=== PATIENT | female | born 1940 | race Caucasian/White ===

== ENCOUNTER 2018-10-01 01:16 | Inpatient (IN) | payer OTHER, MEDICARE ==
[~2018-10-01] VITALS: Ht 152.4 cm; Wt 75.4 kg
[2018-10-01 01:17] VITALS: BP 136/58
[2018-10-01 02:01] LABS: ABSOLUTE NEUTROPHILS 7.4 thou/uL (1.4-8.2); BASOPHILS 0.9 % (0.0-2.0); EOSINOPHILS 1.3 % (0.0-3.0); HEMATOCRIT 38.8 % (37.0-47.0); HEMOGLOBIN 13.1 gm/dL (12.0-15.0); LYMPHOCYTES 13.1 % (24.0-44.0); MCH 28.4 pg (26.0-34.0); MCHC 33.8 g/dL (28.0-37.0); MCV 84.2 fL (80.0-100.0); MONOCYTES 7.3 % (1.0-8.0); PLATELET COUNT 229 thou/uL (150-400); POLYS 77.4 % (36.0-66.0); RBC 4.61 mil/uL (4.20-5.00); RDW 14.6 % (10.5-14.5); WBC 9.6 thou/uL (4.0-11.0)
[2018-10-01 02:08] LABS: ANION GAP 11 mmol/L (7-16); BUN 21 mg/dL (7-18); CALCIUM 8.6 mg/dL (8.5-10.1); CHLORIDE 103 mmol/L (98-107); CO2 28 mmol/L (21-32); CREATININE 1.1 mg/dL (0.6-1.0); GLUCOSE 156 mg/dL (74-106); POTASSIUM 3.4 mmol/L (3.5-5.1); SODIUM 142 mmol/L (136-145)
[2018-10-01 02:18] LABS: ALBUMIN 3.7 g/dL (3.4-5.0); MAGNESIUM 1.6 mg/dL (1.8-2.4); SGOT 19 U/L (15-37); SGPT 23 U/L (30-65); TOTAL BILIRUBIN 0.6 mg/dL (<0.1-1.0); TROPONIN-I <0.06 ng/mL (<0.06)
[2018-10-01] MEDS ORDERED: MAXZIDE-25 MG1 EACH PO (02:22)
[2018-10-01] MEDS ORDERED: CARDIZEM CD240 MG PO (02:22)
[2018-10-01] MEDS ORDERED: SIMVASTATIN40 MG PO (02:22)
[2018-10-01] MEDS ORDERED: [UNRECOGNIZED DRUG - OTHER] (02:23)
[2018-10-01] MEDS ORDERED: VITAMIN D31000 UNIT PO (02:23)
[2018-10-01] MEDS ORDERED: PREVACID15 MG PO (02:23)
[2018-10-01 05:58] LABS: CHOLESTEROL 162 mg/dL (<200); HDL CHOLESTEROL 62 mg/dL (>40); LDL CHOLESTEROL 87 mg/dL (<100); SERUM ASSESSMENT Clear; TC:HDL 2.6 Ratio (Not establshd); TRIGLYCERIDE 67 mg/dL (<150); VLDL 13 mg/dL (<40)
--- NOTE | 2018-10-01 08:16 | EKG ---
[address] [address] ELECTROCARDIOGRAM REPORT Name: FIDEL GASCA Room #: 170-1 ADM IN M.R.#: [id number] ������������������ Admission: 10/01/18 ������������������ Attend Phys: Adonis Jones MD Discharge: ������������������ Date of : 42 Report #: [id number] ����������������������������������������������������������������� [id number] THIS REPORT FOR: //name// [facility] ED Test Date: 2018-10-01 Test Time: 01:23:25 Pat Name: FIDEL GASCA Department: Room: 170 Gender: F Rail Car Repairer: Bird PACHECO : 1940 Requested By: Johnny Shaffer Order Number: [id number] MD: Hussain Terry Measurements Intervals [place] Rate: 56 P: 54 AR: 176 QRS: 50 QRSD: 99 T: 58 QT: 503 QTc: 486 Interpretive Statements Sinus rhythm Borderline prolonged QT interval Compared to ECG 09/23/2004 06:14:17 No significant changes Electronically Signed On 10-01-2018 8:16:28 CDT by Hussain Terry [email or web address] ��������������������������������������������� <ELECTRONICALLY SIGNED> ���������������������������������������� By: Hussain Terry MD ��������������������������������������������� 10/01/18815 0123 0123 Hussain Terry MD /DEZ
[2018-10-01] MEDS ORDERED: ALLEGRA-D 24 H1 EACH PO (09:13)
[2018-10-01 09:24] LABS: URINE BILIRUBIN NEGATIVE (Negative); URINE BLOOD 1+ (Negative); URINE CLARITY CLOUDY; URINE COLOR YELLOW; URINE GLUCOSE-RANDOM* NEGATIVE (Negative); URINE KETONES NEGATIVE (Negative); URINE NITRITE-REFLEX NEGATIVE (Negative); URINE PROTEIN (DIPSTICK) NEGATIVE (Negative); URINE SPECIFIC GRAVITY 1.015 (1.005-1.035); URINE UROBILINOGEN 0.2 E.U./dl (0.2-1.0)
[2018-10-01 09:36] LABS: URINE LEUKOCYTES-REFLEX 3+ (Negative)
[2018-10-01 09:48] LABS: BACTERIA-REFLEX >30 Many /HPF (None Seen); CASTS None Seen /LPF (None Seen); CRYSTALS None Seen /LPF (None Seen); SQUAMOUS None Seen /LPF (0-3); URINE RBC 0-2 Rare /HPF (0-2)
--- NOTE | 2018-10-01 11:15 | 2DMMODE ---
[facility] [place] [address] 2 D/M-MODE ECHOCARDIOGRAM Name: ALLIEDAMIANFIDEL J Room #: 170 ADM IN M.R.#: [id number] ������������� Admission: 10/01/18 ������������� Attend Phys: Noam Zapien Discharge: ��� ������������� ��� Date of : 42 Date of Service: 10/01/18 1115 �� Report #: [id number] �������� ��������������������������������������������[id number] THIS REPORT FOR: //name// APPROVED REPORT Study performed: 10/01/2018 10:25:30 EXAM: Comprehensive 2D, Doppler, and color-flow Echocardiogram Patient Location: Echo lab Room #: [facility] Status: routine BSA: 1.65 HR: 75 bpm BP: 139/68 mmHg Rhythm: PVC's Other Information Study Quality: Fair Indications Hypertension/HDD 2D Dimensions RVDd: 31.74 mm Volumes Left Atrial Volume (Systole) Single Plane 4CH: 47.54 mL Single Plane 2CH: 48.28 mL LA ESV Index: 32.00 mL/m2 Aortic Valve AoV Peak Sonido.: 1.52 m/s AO Peak Gr.: 9.21 mmHg LVOT Max P.47 mmHg LVOT Max V: 0.93 m/s Mitral Valve E/A Ratio: 0.8 MV Decel. Time: 257.17 ms MV E Max Sonido.: 0.88 m/s MV A Sonido.: 1.17 m/s MV PHT: 74.58 ms IVRT: 78.43 ms Pulmonary Vein P Vein S: 0.84 m/s P Vein A: 0.37 m/s [facility] [address] [place] [address] 2 D/M-MODE ECHOCARDIOGRAM Name: CAMPOSFIDEL J Room #: 170-1 [facility] IN .R.#: [id number] ������������� Admission: 10/01/18 ������������� Attend Phys: Noam Zapien Discharge: ��� ������������� ��� Date of : 42 Date of Service: 10/01/18 1115 �� Report #: [id number] �������� ��������������������������������������������[id number] P Vein D: 0.49 m/s P Vein A Dur.: 73.8 msec P Vein S/D Ratio: 1.71 Tricuspid Valve TR Peak Sonido.: 2.64 m/s TR Peak Gr.: 27.90 mmHg Left Ventricle The left ventricle is normal size. There is normal left ventricular wall thickness. The left ventricular systolic function is normal. The left ventricular ejection fraction is within the normal range. LVEF is 55-60%. Mild diastolic dysfunction is present (impaired relaxation pattern). Right Ventricle The right ventricle is normal size. The right ventricular systolic function is normal. Atria The left atrium size is normal. The right atrium size is normal. Aortic Valve The aortic valve is normal in structure. No aortic regurgitation is present. There is no aortic valvular stenosis. Mitral Valve The mitral valve is normal in structure. Mild mitral regurgitation. No evidence of mitral valve stenosis. Tricuspid Valve The tricuspid valve is normal in structure. Trace to mild tricuspid regurgitation. Pulmonic Valve Pulmonic valve is not well visualized. Great Vessels The aortic root is normal in size. IVC is not well visualized. Pericardium There is no pericardial effusion. <Conclusion> The left ventricle is normal size. [facility] [address] [place] [address] 2 D/M-MODE ECHOCARDIOGRAM Name: FIDEL GASCA Room #: 170- ADM IN [facility].#: [id number] ������������� Admission: 10/01/18 ������������� Attend Phys: Noam Zapien Discharge: ��� ������������� ��� Date of : 42 Date of Service: 10/01/18 1115 �� Report #: [id number] �������� ��������������������������������������������[id number] There is normal left ventricular wall thickness. The left ventricular systolic function is normal. Mild diastolic dysfunction is present (impaired relaxation pattern). The right ventricle is normal size. The left atrium size is normal. The right atrium size is normal. The aortic valve is normal in structure. Mild mitral regurgitation. Trace to mild tricuspid regurgitation. ��������������������������������������������� <ELECTRONICALLY SIGNED> ���������������������������������������� By: Art Fernandez MD ��������������������������������������������� 10/01/18 1115 1115 14 Art Fernandez MD /INF
[2018-10-01 14:30] VITALS: BP 127/61
[2018-10-01 15:10] VITALS: BP 132/45
[2018-10-01 15:47] VITALS: BP 127/61
--- NOTE | 2018-10-01 16:19 | NUR ---
PT ADMITED FROM ER. ADMISSION HX AND ASSESSMENT COMPLETED. VSS. DENIED HAVING PAIN OR DISCOMFORT. SEEN BY ANUSHA BOWER. ORDERS GIVEN TO DISCHARGE PT TO HOME. DISCHARGE INSTRUCTIONS GIVEN TO PT. PT VERBERLIZE UNDERSTANDING.
[2018-10-02 01:07] LABS: GLYCOHEMOGLOBIN (HGB A1C) 5.8 % (4.8-5.6)
== END 2018-10-01 16:48 | disposition home or self-care (01) | DRG 206 ==
LOC: ER 01:16 → EROBS 01:55 → 2N 14:30
PROVIDERS: Emergency Medicine; Nurse Practitioner; Nurse Practitioner Family; ADMIT Hospitalist
DX: M94.0 Chondrocostal junction syndrome [Tietze] (principal); I10 Essential (primary) hypertension; E78.5 Hyperlipidemia, unspecified; K21.9 Gastro-esophageal reflux disease without esophagitis; Z88.8 Allergy status to other drugs, medicaments and biological substances; Z91.030 Bee allergy status; Z91.041 Radiographic dye allergy status; Z88.1 Allergy status to other antibiotic agents; Z79.899 Other long term (current) drug therapy
CPT/HCPCS: 10081

== ENCOUNTER 2018-10-21 11:38 | Inpatient (IN) | payer OTHER, MEDICARE ==
[~2018-10-21] VITALS: Ht 152.4 cm; Wt 69.9 kg
[~2018-10-21 11:38] MED LIST: ALLEGRA-D 24 H1 EACH PO; CARDIZEM CD240 MG PO; MAXZIDE-25 MG1 EACH PO; PREVACID15 MG PO; SIMVASTATIN40 MG PO; VITAMIN D31000 UNIT PO; [UNRECOGNIZED DRUG - OTHER]
[2018-10-21 11:39] VITALS: BP 138/85
[2018-10-21 12:05] LABS: ABSOLUTE NEUTROPHILS 9.2 thou/uL (1.4-8.2); BASOPHILS 0.4 % (0.0-2.0); EOSINOPHILS 0.3 % (0.0-3.0); HEMATOCRIT 36.6 % (37.0-47.0); HEMOGLOBIN 12.3 gm/dL (12.0-15.0); LYMPHOCYTES 5.1 % (24.0-44.0); MCH 28.3 pg (26.0-34.0); MCHC 33.7 g/dL (28.0-37.0); MONOCYTES 11.7 % (1.0-8.0); PLATELET COUNT 180 thou/uL (150-400); POLYS 82.5 % (36.0-66.0); RBC 4.36 mil/uL (4.20-5.00); RDW 14.7 % (10.5-14.5); WBC 11.2 thou/uL (4.0-11.0)
[2018-10-21 12:22] LABS: ANION GAP 9 mmol/L (7-16); BUN 10 mg/dL (7-18); CALCIUM 8.8 mg/dL (8.5-10.1); CHLORIDE 100 mmol/L (98-107); CO2 27 mmol/L (21-32); CREATININE 0.8 mg/dL (0.6-1.0); GLUCOSE 104 mg/dL (74-106); SGOT 28 U/L (15-37); SGPT 25 U/L (30-65); SODIUM 136 mmol/L (136-145); TOTAL BILIRUBIN 0.9 mg/dL (<0.1-1.0); TOTAL PROTEIN 6.6 g/dL (6.4-8.2); TROPONIN-I <0.06 ng/mL (<0.06)
[2018-10-21 12:23] LABS: POTASSIUM 2.8 mmol/L (3.5-5.1)
[2018-10-21 16:47] VITALS: BP 127/79
--- NOTE | 2018-10-21 16:48 | NUR ---
HANDOFF FAXED; [facility] ROOM WAS AVAILABLE; DIRTY NOW; REPORT TO BE GIVEN IN 5 MIN
[2018-10-21 17:16] VITALS: BP 130/60
--- NOTE | 2018-10-21 17:43 | NUR ---
PT ARRIVED TO CCU AT 1740, A70X4, AMB INDEPENDENTLY, IVF ATTACHED, NO PUMP. NOT A FALL RISK, IS NOT IMPULSIVE, IS NOT HAVING ANY PAIN AT THIS TIME. WILL REVIEW ORDERS AND COMPLETE ADMISSION MUCH ABLE. ENCOURAGED HER TO USE CALL LIGHT FOR ANY NEEDS. GAVE HER MOUTH SWABS AND MOUTH MOISTURIZER. PT DOES HAVE A COUGH AT THIS TIME, SHE FORGOT AND TOLD DOC SHE DIDN'T, HAS HAD COUGH FOR MONTHS, DRY COUGH, NONPRODUCTIVE
[2018-10-21 20:25] VITALS: BP 135/59
[2018-10-22 02:37] VITALS: BP 135/59
--- NOTE | 2018-10-22 03:47 | NUR ---
ASSESSMENT CHARTED. VSS. PT DENIES CP, N/V, DIZZINESS, SOA. PT STATED SOMETIMES CHEST DISCOMFORT SCHEDULED PROTONIX PER EMAR GIVEN PT STATED FEELS GREAT NOW. FLUIDS PER EMAR. NPO AT MIDNIGHT- PT STATES SHE WAS TOLD POSSIBLE EGD THIS AM. PT STEADY AD ALY. SLEEPING WELL THROUGHOUT THE NIGHT. ORAL PATHOLOGIST NOTIFIED PREVIOUS LABS, MAG DRAW ADDED TO AM LABS. WILL CONTINUE TO MONITOR AND WITH POC.
[2018-10-22 04:12] VITALS: BP 125/55
[2018-10-22 05:33] LABS: ALBUMIN 2.4 g/dL (3.4-5.0); ANION GAP 7 mmol/L (7-16); BUN 7 mg/dL (7-18); CALCIUM 8.1 mg/dL (8.5-10.1); CHLORIDE 104 mmol/L (98-107); CO2 29 mmol/L (21-32); CREATININE 0.8 mg/dL (0.6-1.0); GLUCOSE 142 mg/dL (74-106); PHOSPHORUS 2.5 mg/dL (2.5-4.9); POTASSIUM 3.1 mmol/L (3.5-5.1); SODIUM 140 mmol/L (136-145); TROPONIN-I <0.06 ng/mL (<0.06)
[2018-10-22 08:14] VITALS: BP 125/58
--- NOTE | 2018-10-22 09:23 | EKG ---
[address] [place] [address] ELECTROCARDIOGRAM REPORT Name: FIDEL GASCA Room #: 212-P ADM IN M.R.#: [id number] ������������������ Admission: 10/21/18 ������������������ Attend Phys: Noam Sky Discharge: ������������������ Date of : 42 Report #: [id number] ����������������������������������������������������������������� [id number] THIS REPORT FOR: //name// [facility] ED Test Date: 2018-10-21 Test Time: 11:47:11 Pat Name: FIDEL GASCA Department: Room: [facility] Gender: F Acute Care Occupational Therapist: Satinder : 1940 Requested By: Adilson Saenz Order Number: [id number] MD: Meir Mckay Measurements Intervals [place] Rate: 84 P: 50 NC: 153 QRS: 52 QRSD: 102 T: 49 QT: 401 QTc: 475 Interpretive Statements Sinus rhythm Minimal ST depression Compared to ECG 10/01/2018 01:23:25 ST (T wave) deviation now present Electronically Signed On 10-22-2018 9:23:31 CDT by Meir Mckay [email or web address] ��������������������������������������������� <ELECTRONICALLY SIGNED> ���������������������������������������� By: Meir Mckay MD, [facility] ��������������������������������������������� 10/22/18 0923 1147 1147 Meir Mckay MD, [facility] /EPI
[2018-10-22 16:34] VITALS: BP 140/54
[2018-10-22 16:44] VITALS: BP 140/54
--- NOTE | 2018-10-22 17:02 | NUR ---
PT CARE ASSUMED APPROX 1130. PT ALERT AND ORIENTED X4. DENIES PAIN AND SOA. VSS. UP AD ALY WITH STEADY GAIT. COMPLETED EDG THIS SHIFT W/O ISSUE PER REPORTS. PT TO DISCHARGE HOME TO SELF CARE THIS SHIFT. GI AND CV APPROVED FOR DISCHARGE. PT TO KEEP CV APPT TOMORROW. DISCHARGE PAPERWORK REVIEWED WITH PT. SHE DENIES QUESTIONS OR CONCERNS REGARDING POST HOSPITAL CARE, MEDS AND F/U. IV OUT, TELE BOX OFF. FAMILY TO TRANSPORT PT HOME. HOSPITAL STAFF TO ESCORT PT OUT TIMELY.
--- NOTE | 2018-10-23 14:56 | P ---
[facility] [place] [address] PROCEDURE REPORT Name: FIDEL GASCA Room #: 212-P [facility] IN M.R.#: [id number] Admission: 10/21/18 ������������������ Attend Phys: Noam Sky Discharge: 10/22/18 ������������������ Date of : 42 Report #: [id number] THIS REPORT FOR: //name// CC: DR PEDRO Roberson DATE OF SERVICE: 10/22/2018 PROCEDURE PERFORMED: Upper endoscopy with biopsies. HISTORY OF PRESENT ILLNESS: The patient is a 78-year-old female with a history of intermittent chest pain. She was hospitalized early September for similar type symptoms, and cardiac workup at that time was negative including its noninvasive stress test. The patient does have a history of heartburn and has been on Prilosec for many years. She denies any dysphagia or odynophagia. She does report some mild nausea, but no emesis. No previous history of upper endoscopy. No NSAID use. DESCRIPTION OF PROCEDURE: The risks and benefits of the procedure were explained to the patient, those risks including but not limited to bleeding, perforation and the risk of sedation. She understood these risks and gave informed consent. Sedation was given using propofol per Anesthesia. Next, using a standard Olympus upper endoscope, the scope was placed in the patient's mouth and advanced under direct vision through the esophagus, stomach and into the second portion of the duodenum. The esophagus was normal throughout. The GE junction was normal. No evidence of esophagitis. Upon entering the stomach, a small hiatal hernia was noted. Overall, the gastric mucosa was normal. Biopsies were obtained to rule out H. pylori. The pylorus was normal and patent. The duodenal bulb, first and second portion were all normal. The scope was then withdrawn and the procedure terminated. The patient tolerated the procedure well. IMPRESSION: 1. Small hiatal hernia. 2. Otherwise, normal upper endoscopy. RECOMMENDATIONS: 1. Continue PPI therapy. 2. Etiology of chest pain is unclear. Cardiac workup has been essentially negative. Chest x-ray is negative, could consider a trial of Levsin on a p.r.n. basis. We will discuss further with the patient. She currently has been switched to a different PPI, which sometimes is helpful as well. [address] [address] PROCEDURE REPORT Name: FIDEL GASCA Bird Room #: 212-P [facility] IN M.R.#: [id number] Admission: 10/21/18 ������������������ Attend Phys: Noam Sky Discharge: 10/22/18 ������������������ Date of : 42 Report #: [id number] Thank you for allowing me to participate in her care. ��������������������������������������������� <ELECTRONICALLY SIGNED> ���������������������������������������� By: Neal Loera MD ��������������������������������������������� 10/23/18 1456 1259 0845 Neal Loera MD /nt
--- NOTE | 2018-10-23 15:07 | PATH ---
[facility] [address] [place] [address] PATHOLOGY RPT PROCEDURE Name: PRISCILA MCDONALD Bird Room #: 212-P DIS IN M.R.#: [id number] ������������������ Admission: 10/21/18 ������������������ Date of : 42 Discharge: 10/22/18 Report #: [id number] Path Case #: [id number] [facility] Accession Number: [id number] . 01 Material submitted: . stomach - GASTRIC BIOPSY R/O H PYLORI . 01 Clinical history: . Chest pain, rule out H. pylori . 02 Diagnosis: Gastric mucosa, rule out H. pylori, endoscopic biopsy: - Mild reactive gastropathy. - Negative for intestine metaplasia or atrophy. - Negative for Helicobacter pylori (properly controlled immunohistochemical stain performed). (IUV:top lift trimmer; 10/23/2018) MBR/10/23/2018 . 02 Electronically signed: . Jeniffer Morrissey MD, Pathologist NPI- [id number] . 01 Gross description: . Received in formalin labeled "Priscila Mcdonald, gastric BX," are 2 segments of mcgregor soft tissue measuring 0.7 x 0.2 x 0.2 cm in aggregate dimensions and ranging from 0.3 to 0.4 cm in maximum dimension. The specimen is submitted entirely in cassette A1. (TSD; 10/22/2018) TOB/TOB . 02 Pathologist provided ICD-10: K31.9 . 02 CPT . 182725, B10876 Specimen Comment: A courtesy copy of this report has been sent to Specimen Comment: [phone], , . Specimen Comment: Report sent to ,DR HENDRICKSON / DR LAUGHLIN Performed at: [address], [place] [id number] MD Mina Aguilar MD Phone: [phone] Performed at: [address] [id number] MD Jeniffer Morrissey MD Phone: [phone]
== END 2018-10-22 18:35 | disposition home or self-care (01) | DRG 392 ==
LOC: ER 11:38 → 2N 13:15 → EROBS 13:15 → 2N 17:16
PROVIDERS: Emergency Medicine; ADMIT Hospitalist
PROC: 0DB78ZX Excision of Stomach, Pylorus, Via Natural or Artificial Opening Endoscopic, Diagnostic (ICD-10-PCS; principal; 2018-10-22)
DX: K21.9 Gastro-esophageal reflux disease without esophagitis (principal); R07.89 Other chest pain; E78.00 Pure hypercholesterolemia, unspecified; I10 Essential (primary) hypertension; E87.6 Hypokalemia; K44.9 Diaphragmatic hernia without obstruction or gangrene; J30.9 Allergic rhinitis, unspecified; E55.9 Vitamin D deficiency, unspecified; I25.2 Old myocardial infarction; Z79.899 Other long term (current) drug therapy; Z91.030 Bee allergy status; Z88.8 Allergy status to other drugs, medicaments and biological substances; Z91.041 Radiographic dye allergy status; Z80.0 Family history of malignant neoplasm of digestive organs
CPT/HCPCS: 10081; 62110; 62900

== ENCOUNTER → 2019-04-26 | Outpatient (CLI) | payer OTHER, MEDICARE | LOC: CAT 09:40 → SJCVC 09:40 | DX: Z13.6 Encounter for screening for cardiovascular disorders (principal); E78.00 Pure hypercholesterolemia, unspecified; I25.10 Atherosclerotic heart disease of native coronary artery without angina pectoris ==

== ENCOUNTER → 2019-10-16 | Outpatient (CLI) | payer OTHER, MEDICARE | LOC: SJCVC 08:57 | PROVIDERS: ATTEND Internal Medicine Cardiovascular Disease | DX: I87.2 Venous insufficiency (chronic) (peripheral) (principal); R60.0 Localized edema; Z79.899 Other long term (current) drug therapy ==

== ENCOUNTER → 2019-10-23 | Outpatient (CLI) | payer OTHER, MEDICARE | LOC: SJCVC 09:51 | PROVIDERS: ATTEND Internal Medicine Cardiovascular Disease | DX: R93.1 Abnormal findings on diagnostic imaging of heart and coronary circulation (principal); I25.10 Atherosclerotic heart disease of native coronary artery without angina pectoris; I10 Essential (primary) hypertension; E78.00 Pure hypercholesterolemia, unspecified; K21.9 Gastro-esophageal reflux disease without esophagitis; Z79.899 Other long term (current) drug therapy ==